=== PATIENT | male | born 1985 | race Asian ===

== ENCOUNTER 2016-10-11 06:02 | Day surgery (SDC) | payer MEDICARE, OTHER ==
[~2016-10-11] VITALS: Ht 162.6 cm; Wt 75.0 kg
[2016-10-11] VITALS (12 sets, daily range): BP systolic 117–151; BP diastolic 51–84; PULSE 60–82; RESP 13–29; Ht 162.6 cm; Wt 75.0 kg
[~2016-10-11 06:02] MED LIST: CALC667C PO; HYDR-3498 PO; HYDR-3720 PO; METO-448 PO; SEVE800T10 PO
[2016-10-11] MEDS ORDERED: METO-448 PO (06:56)
[2016-10-11] MEDS ORDERED: CALC667C PO (06:56)
[2016-10-11] MEDS ORDERED: SEVE800T10 PO (06:56)
[2016-10-11 06:57] LABS: BASOPHILS % 0.5 % (0.0-2.0); EOSINOPHILS # 0.6 10^3/ul (0.0-0.5); EOSINOPHILS % 6.6 % (0.0-7.0); HEMATOCRIT 33.1 % (42.0-52.0); HEMOGLOBIN 11.2 g/dl (14.0-18.0); LYMPHOCYTES % 35.5 % (15.0-51.0); MEAN CORPUSCULAR HEMOGLOBIN 31.5 pg (29.0-33.0); MEAN CORPUSCULAR HGB CONC 33.8 g/dl (32.0-37.0); MEAN PLATELET VOLUME 7.8 fl (7.4-10.4); MONOCYTE # 1.1 10^3/ul (0.3-0.9); MONOCYTES % 13.1 % (0.0-11.0); NEUTROPHIL # 3.8 10^3/ul (1.6-7.5); NEUTROPHILS % 44.3 % (39.0-77.0); PLATELET COUNT 162 10^3/UL (140-440); RED BLOOD COUNT 3.56 10^6/ul (4.70-6.10); RED CELL DISTRIBUTION WIDTH 14.8 % (11.5-14.5); UNCORRECTED WBC 8.5 10^3/ul (4.8-10.8); WHITE BLOOD COUNT 8.5 10^3/ul (4.8-10.8)
[2016-10-11 07:02] LABS: INR 0.89; PT RATIO 0.9
[2016-10-11 07:09] LABS: CONDITION 1; LH ANALYZER COMMENTS 1
[2016-10-11] MEDS ORDERED: IODIXANOL LOCM 50 ML BTL ONE ×2 (08:01→08:45)
[2016-10-11] MEDS ORDERED: SOD CHLORIDE 0.9% 500 ML ONE (08:01)
[2016-10-11] MEDS ORDERED: IODIXANOL LOCM 100 ML BTL ONE (08:01)
[2016-10-11] MEDS ORDERED: FENTAnyl 50 MCG/ML VIAL ONE (08:01)
[2016-10-11 08:10] LABS: PARTIAL THROMBOPLASTIN TIME 36.1 Sec (25.0-35.0)
[2016-10-11] MEDS ORDERED: MIDAZOLAM 1 MG/ML 2 ML INJ ONE (08:15)
[2016-10-11] MEDS ORDERED: HEPARIN 1000 UNITS/ML 10 ML INJ ONE (08:18)
[2016-10-11] MEDS ORDERED: DIPHENHYDRAMINE 50 MG INJ ONE (08:59)
--- NOTE | 2016-10-11 09:08 | PDOCDIS ---
Discharge Instructions DIAGNOSIS Discharge Diagnosis: ESRD CONDITION Patient Condition: Good HOME CARE INSTRUCTIONS: Special Diet: RENAL DIET ACTIVITY: Activity Restrictions: Slowly Increase Activity Avoid heavy lifting Do not Drive Do not operate Machinery Do not operate Power Tool Avoid Heavy Housework Keep Limb Elevated Activity Restrictions Comment: MAY SHOWER IN 24HRS FOLLOW UP/APPOINTMENTS Appointments FOLLOWUP WITH [facility]IC[facility] AT [facility] IN 1 WEEKS MAY REMOVE DRESSING IN 24HRS ADAM VARGAS MD Oct 11, 2016 09:08
--- NOTE | 2016-10-11 12:40 | OPR ---
DATE OF OPERATION: 10/11/2016 SURGEON: Juma Zapien MD FLUOROSCOPY SAXENA: Terry Chaves MD PREOPERATIVE DIAGNOSIS: End-stage renal disease and malfunctioning right upper extremity arterioven ous fistula. POSTOPERATIVE DIAGNOSIS: End-stage renal disease and malfunctioning right upper extremity arteriove nous fistula. ANESTHESIA: Local with sedation. ESTIMATED BLOOD LOSS: Minimal. COMPLICATIONS: None. MEDICATIONS: Heparin 5000 units given intravenously. Contrast as recorded. ACCESS: A 7-Ukrainian sheath, right upper extremity. CLOSURE: Manual compression and 3-0 nylon suture. INDICATIONS: This is a 31-year-old gentleman who presented with non-maturing right upper extremity AV fistula. The patient underwent an ultrasound that identified having high velocities in areas of neointimal hyperplasia. The patient has been informed of the alternatives, risks, and benefits of t he angiogram, balloon angioplasty, and possible stenting. The risks including, but not limited to, bleeding, thrombosis, embolization of myocardial infarction, , stroke, device malfunction, infe ction, nephrotoxicity, and he has agreed to proceed. PROCEDURE: 1. Ultrasound-guided access of the right upper extremity fistula. 2. Right upper extremity venogram. 3. Right subclavian vein and superior vena cava venoplasty with a 9 x 40 mm balloon. 4. Right basilic vein balloon angioplasty with 5 x 40 mm balloon and then repeated with 6 x 80 mm b alloon. 5. Completion venogram was performed. FINDINGS: 1. Patent brachial artery, patent radial artery. 2. Patent ulnar artery. 3. Patent interosseous artery. 4. Patent fistula at the anastomosis. 5. Patent fistula with severe areas of stenosis in the proximal aspect of the fistula extending to the mid upper arm. 6. Moderate to severe stenosis of the right subclavian vein at the internal jugular vein junction a nd proximal superior vena cava. Post intervention patent fistula at the anastomosis and to the exte nt of the area where there was significant stenosis. There was good outflow into the central system . DESCRIPTION OF PROCEDURE: The patient was brought into the angio suite and positioned in the supine position on the fluoroscopic table. Sedation was administered without any complications. Right up per extremity was prepped, shaved, and draped in the usual standard sterile fashion. Time out and t he appropriate sites were marked and confirmed. Local anesthesia was infiltrated into the region of the right upper extremity fistula. The fistula was then cannulated with a micro access needle under ultrasound guidance, and a guidewir e was advanced into the proximal aspect of the fistula under fluoroscopic guidance. The needle was then removed and the [place] catheter was placed. Multi-station fistulogram and venogram were perform ed of the right upper extremity fistula and right upper extremity veins and central veins. Findings are noted above. At this point, it was determined to intervene with venoplasty of the proximal asp ect of the basilic vein and the central vein where the areas of stenosis were identified. At this p oint, using ultrasound guidance, access of the arterial aspect of the fistula was obtained. This wa s performed under ultrasound and fluoroscopic guidance. At this point, a 7-Ukrainian sheath was placed , and using a ThisLife guidewire and Biosceptreenstein catheter, the Bentson wire was placed in the inferior vena cava. At this point, venoplasty of the basilic vein and a loop forearm AV fistula was perform ed, first using a 6 x 80 mm balloon. There were areas of significant stenosis and some residual freddy nosis which was then attended to with repeating the venoplasty with a 5 x 40 mm balloon, and that ar ea was treated. At this point, we performed a venogram which identified the patient still has centr al stenosis. We ended up using a 9 x 40 balloon in order to perform a venoplasty of the right subcl kwan vein/internal jugular vein junction and the proximal superior vena cava. Completion venogram identified that there was good outflow into the right atrium and the areas of significant stenosis i n the proximal aspect of the loop, the AV fistula was also improved. At this point, all the cathete rs and sheaths and wires were removed, and re-using a 3-0 nylon suture to close the puncture sites w as performed. The patient was taken to the recovery room in fair condition. Dictated By: JUMA LY/MADELINE Conf#: [id number] DID#: [id number]
== END 2016-10-11 14:22 | disposition home or self-care (01) ==
LOC: SDS 06:02 → CCL 06:05 → SDS 14:22
PROVIDERS: ATTEND Student in an Organized Health Care Education/Training Program
DX: T82.590A Other mechanical complication of surgically created arteriovenous fistula, initial encounter (principal); Y71.1 Therapeutic (nonsurgical) and rehabilitative cardiovascular devices associated with adverse incidents; N18.6 End stage renal disease
CPT/HCPCS: 36901; 36902; 36907; 85025; 85610; 85730; C1725; C1769; C1887; C1894; J1200; J1644; J2250; J3010; J7040; Q9967

== ENCOUNTER → 2016-11-03 | Outpatient (CLI) | END | disposition home or self-care (01) | DX: N19 Unspecified kidney failure (principal) ==

== ENCOUNTER → 2016-11-10 | Outpatient (CLI) | payer MEDICARE, OTHER ==
--- NOTE | 2016-11-10 08:40 | RADRPT ---
PROCEDURE: XR Chest. CLINICAL INDICATION: Screening for tuberculosis TECHNIQUE: Chest PA. COMPARISON: 06/07/2016 FINDINGS: Right internal jugular tunnel dialysis catheter. The mediastinal structures are unremarkable. The heart is normal in size and configuration. The pu lmonary vascularity is normal. The lung warren are unremarkable. No consolidation is identified. The pleural spaces are unremarkable. The axial skeleton is unremarkable. There is no radiographic evidence of tuberculosis. IMPRESSION: No active intrathoracic disease. RPTAT: HGDB .Mariano Elizabeth MD, MD Date Time Electronically viewed and signed by .Mariano Elizabeth MD, on 11/10/2016 08:39 .B/
== END | disposition home or self-care (01) ==
LOC: RAD 08:13
PROVIDERS: ATTEND Internal Medicine Nephrology
DX: Z20.1 Contact with and (suspected) exposure to tuberculosis (principal)
CPT/HCPCS: 71010

== ENCOUNTER 2017-02-21 23:15 | Observation (INO) | payer MEDICARE, OTHER ==
[~2017-02-21] VITALS: Ht 167.6 cm; Wt 79.3 kg
[2017-02-22] VITALS (11 sets, daily range): BP systolic 129–174; BP diastolic 65–100; PULSE 67–89; RESP 18–19; TEMP 98.5; Ht 167.6 cm; Wt 79.3 kg
[2017-02-22 03:52] LABS: ADD SCAN DIFF NO
[2017-02-22 03:54] LABS: BASOPHILS % 0.4 % (0.0-2.0); EOSINOPHILS # 0.4 10^3/ul (0.0-0.5); EOSINOPHILS % 4.2 % (0.0-7.0); HEMATOCRIT 33.8 % (42.0-52.0); HEMOGLOBIN 11.2 g/dl (14.0-18.0); LYMPHOCYTES # 3.5 10^3/ul (0.8-2.9); LYMPHOCYTES % 33.1 % (15.0-51.0); MEAN CORPUSCULAR HEMOGLOBIN 30.1 pg (29.0-33.0); MEAN CORPUSCULAR HGB CONC 33.1 g/dl (32.0-37.0); MEAN CORPUSCULAR VOLUME 90.9 fl (82.0-101.0); MEAN PLATELET VOLUME 9.6 fl (7.4-10.4); MONOCYTE # 1.1 10^3/ul (0.3-0.9); MONOCYTES % 10.7 % (0.0-11.0); NEUTROPHIL # 5.4 10^3/ul (1.6-7.5); NEUTROPHILS % 51.3 % (39.0-77.0); PLATELET COUNT 220 10^3/UL (140-415); RED BLOOD COUNT 3.72 10^6/ul (4.70-6.10); RED CELL DISTRIBUTION WIDTH 13.7 % (11.5-14.5); WHITE BLOOD COUNT 10.5 10^3/ul (4.8-10.8)
[2017-02-22 04:21] LABS: ALANINE AMINOTRANSFERASE 50 IU/L (13-69); ALBUMIN 5.1 g/dl (3.3-4.9); ALBUMIN/GLOBULIN RATIO 1.64; ALKALINE PHOSPHATASE 55 IU/L (42-121); ANION GAP 23 (8-16); ASPARTATE AMINO TRANSFERASE 20 IU/L (15-46); BILIRUBIN,INDIRECT 0.1 mg/dl (0-1.1); BILIRUBIN,TOTAL 0.1 mg/dl (0.2-1.3); BLOOD UREA NITROGEN 66 mg/dl (7-20); CALCIUM 9.5 mg/dl (8.4-10.2); CARBON DIOXIDE 23 mmol/L (21-31); CHLORIDE 101 mmol/L (97-110); GLUCOSE 82 mg/dl (70-220); SODIUM 141 mmol/L (135-144); TOTAL PROTEIN 8.2 g/dl (6.1-8.1)
--- NOTE | 2017-02-22 04:45 | RADRPT ---
PROCEDURE: CHEST - 1 VIEW CLINICAL INDICATION: 32-year-old male with shortness of breath and sepsis. TECHNIQUE: A single frontal AP portable view of the chest was performed. The images were reviewed on a PACS workstation. COMPARISON: Chest x-ray November 10, 2016. FINDINGS: There is a right-sided internal jugular tunneled hemodialysis catheter the tip in the distal superio r vena cava. The cardiomediastinal silhouette is within normal limits. There is mild left lower florinda ng zone subsegmental atelectasis and/or scarring. There is no evidence for an infiltrate. There is no evidence for congestive heart failure. There is no evidence for pneumothorax. The osseous struct ures are intact. IMPRESSION: 1. Right internal jugular tunneled hemodialysis catheter the tip in the distal superior vena cava. 2. Mild left lower lung zone subsegmental atelectasis and/or scarring. .Paxton Colindres MD, MD Date Time Electronically viewed and signed by .Paxton Colindres MD, on 02/22/2017 04:45 .M/
[2017-02-22 04:59] LABS: CREATININE 17.79 mg/dl (0.61-1.24); TROPONIN-I < 0.012 ng/ml (0.00-0.12)
[2017-02-22] MEDS ORDERED: CALC667C PO (05:17)
[2017-02-22 05:20] LABS: INR 0.91; PARTIAL THROMBOPLASTIN TIME 37.4 Sec (25.0-35.0); PROTIME 12.3 Sec (12.2-14.2)
--- NOTE | 2017-02-22 05:25 | ERA ---
ER Documentation Chief Complaint Date/Time DATE: 02/22/17 TIME: 05:24 Chief Complaint hypertension , chills, back pain x 1 day, dialysis pat. dialysis days MWF HPI There is a 33 mL hypertension chills and back pain for 1 day. Patient dialysis. She and her mother was afraidthat he started having fevers as well yesterday. No nausea no vomiting. No cough. No other current issues. ROS All systems reviewed and are negative except as per history of present illness. Medications Home Meds Reported Medications Calcium Acetate* (Calcium Acetate*) 667 Mg Capsule, 667 MG PO WITH MEALS, #30 CAP 02/22/17 Sevelamer Hcl* (Renagel*) 800 Mg Tablet, 800 MG PO WITH MEALS Y for TID, TAB 10/11/16 Metoprolol Tartrate* (Lopressor*) 25 Mg Tab, 12.5 MG PO BID, #60 TAB 10/11/16 Discontinued Reported Medications Calcium Acetate* (Calcium Acetate*) 667 Mg Capsule, 1334 MG PO WITH MEALS Y for TID, #60 CAP 10/11/16 Calcium Acetate* (Calcium Acetate*) 667 Mg Capsule, 1334 MG PO WITH MEALS, #60 CAP 10/11/16 Discontinued Scripts Hydrocodone Bit-Acetaminophen* ([place]*) 5-325 Mg Tab, 1 TAB PO Q4H Y for PAIN, # 30 TAB Prov:WILLIAM MATHUR 02/05/16 Hydrocodone Bit-Acetaminophen* ([place]*) 7.5-325 Tablet, 1 TAB PO Q4H Y for PAIN , #20 TAB Prov:VEENA AWAD DO 01/20/16 Sevelamer Hcl* (Renagel*) 800 Mg Tab, 1600 MG PO WITH MEALS for 30 Days, TAB Prov:CELESTINA GRACE MD 01/15/16 Metoprolol Tartrate* (Lopressor*) 25 Mg Tab, 25 MG PO BID for 30 Days, TAB Prov:JOSE GARNER 10/26/15 Calcium Acetate* (Calcium Acetate*) 667 Mg Cap, 1334 MG PO WITH MEALS for 30 Days, CAP Prov:JOSE GARNER 10/26/15 Allergies Allergies: Coded Allergies: No Known Allergy (Unverified , 02/22/17) PMhx/Soc History of Surgery: Yes (p[ermacath, AV Fistula) Anesthesia Reaction: No Hx Neurological Disorder: No Hx Respiratory Disorders: No Hx Cardiac Disorders: Yes (HTN) Hx Psychiatric Problems: No Hx Miscellaneous Medical Probl: No Hx Alcohol Use: No Hx Substance Use: No Hx Tobacco Use: No Smoking Status: Never smoker Physical Exam Vitals Vital Signs Date Time Temp Pulse Resp B/P Pulse Ox O2 Delivery O2 Flow Rate FiO2 02/22/17 03:16 97.7 80 16 182/95 99 Room Air 02/21/17 23:21 98.5 92 20 207/110 97 Physical Exam Const: [] Head: Atraumatic Eyes: Normal Conjunctiva ENT: Normal External Ears, Nose and Mouth. Neck: Full range of motion..~ No meningismus. Resp: Clear to auscultation bilaterally Cardio: Regular rate and rhythm, no murmurs Abd: Soft, non tender, non distended. Normal bowel sounds Skin: No petechiae or rashes Back: No midline or flank tenderness Ext: No cyanosis, or edema Neur: Awake and alert Psych: Normal Mood and Affect Result Diagram: 02/22/17 0328 02/22/17 0328 Results 24 hrs Laboratory Tests Test 02/22/17 03:28 White Blood Count 10.510^3/ul Red Blood Count 3.7210^6/ul Hemoglobin 11.2g/dl Hematocrit 33.8% Mean Corpuscular Volume 90.9fl Mean Corpuscular Hemoglobin 30.1pg Mean Corpuscular Hemoglobin Concent 33.1g/dl Red Cell Distribution Width 13.7% Platelet Count 54765^3/UL Mean Platelet Volume 9.6fl Neutrophils % 51.3% Lymphocytes % 33.1% Monocytes % 10.7% Eosinophils % 4.2% Basophils % 0.4% Nucleated Red Blood Cells % 0.0/100WBC Neutrophils # 5.410^3/ul Lymphocytes # 3.510^3/ul Monocytes # 1.110^3/ul Eosinophils # 0.410^3/ul Basophils # 0.010^3/ul Nucleated Red Blood Cells # 0.010^3/ul Prothrombin Time 12.3Sec Prothrombin Time Ratio 1.0 INR International Normalized Ratio 0.91 Activated Partial Thromboplast Time 37.4Sec Sodium Level 141mmol/L Potassium Level 6.0mmol/L Chloride Level 101mmol/L Carbon Dioxide Level 23mmol/L Anion Gap 23 Blood Urea Nitrogen 66mg/dl Creatinine 17.79mg/dl Glucose Level 82mg/dl Lactic Acid Level 1.0mmol/L Calcium Level 9.5mg/dl Total Bilirubin 0.1mg/dl Direct Bilirubin 0.00mg/dl Indirect Bilirubin 0.1mg/dl Aspartate Amino Transf (AST/SGOT) 20IU/L Alanine Aminotransferase (ALT/SGPT) 50IU/L Alkaline Phosphatase 55IU/L Troponin I < 0.012ng/ml Total Protein 8.2g/dl Albumin 5.1g/dl Globulin 3.10g/dl Albumin/Globulin Ratio 1.64 Procedures/MDM EKG: Rate/Rhythm: Normal Sinus Rhythm QRS, ST, T-waves: No changes consistent w/ acute ischemia Impression: No evidence of ischemia or arrhythmia Chest X-ray 1V Interpreted by me: Soft Tissue: No acute abnormalities Bones: No acute abnormalities Mediastinum/Cardiac Silhouette/Lungs: No acute abnormalities Blood and urine cultures pending Medical decision-makin-year-old male with this point will need to be admitted to rule out line sepsis. Started on broad-spectrum antibiotics. Patient will be admitted. Departure Diagnosis: Primary Impression: Line sepsis Qualified Code: T82.7XXA - Line sepsis, initial encounter Condition: Serious RONNIE DHILLON Feb 22, 2017 05:25
[2017-02-22 06:34] LABS: ADD UMIC YES; UR BILIRUBIN (Dip) NEGATIVE (NEGATIVE); UR BLOOD (Dip) 1+ (NEGATIVE); UR CLARITY CLEAR (CLEAR); UR COLOR LT. YELLOW (YELLOW); UR KETONES (Dip) NEGATIVE (NEGATIVE); UR LEUKOCYTE ESTERASE (Dip) NEGATIVE (NEGATIVE); UR NITRITE (Dip) NEGATIVE (NEGATIVE); UR TOTAL PROTEIN (Dip) 4+ (NEGATIVE); UR UROBILINOGEN (Dip) 0.2 E.U./dL (0.1-1.0)
[2017-02-22 07:03] LABS: URINE RBCS 0-2 /HPF (0)
[2017-02-22] MEDS ORDERED: ACETAMINOPHEN 325 MG TAB PO PRN (09:30)
[2017-02-22] MEDS ORDERED: hydrALAzine 20 MG INJ IV PRN (09:30)
[2017-02-22] MEDS ORDERED: NACL 0.9% 3 ML SYG IV SCH (09:30)
[2017-02-22] MEDS ORDERED: morphine 4 MG/ML VIAL IV PRN (09:30)
[2017-02-22] MEDS ORDERED: SEVELAMER 800 MG TAB PO PRN (09:30)
[2017-02-22] MEDS ORDERED: ONDANSETRON 4 MG INJ IV PRN (09:30)
[2017-02-22] MEDS: METOPROLOL 25 MG TAB PO SCH ×2 (09:41→20:42)
--- NOTE | 2017-02-22 10:50 | HP ---
DATE OF ADMISSION: 02/22/2017 TIME OF EVALUATION: 9:00 a.m. REASON FOR ADMISSION: Back pain, chills, elevated blood pressure. CONSULTATIONS: Dr. Geovani Beltran, Nephrology. HISTORY OF PRESENT ILLNESS: This is a 32-year-old [place] male with a past medical history of end-stage renal disease on hemodialysis, and essential hypertension, who came to the emergency room with chief complaint of back pain and chills that started on 02/21/2017. The patient verbalized that he had a complete dialysis on 02/20/2017 without any problems. The patient started having low back pain starting 02/21/2017 with difficulty in ambulation and associated bilateral lower extremity spasms. The patient was also complaining of shaking chills. The patient denied any fevers. The patient denied any cough or dyspnea. He denied any recent sick contacts. The patient verbalized that he had a similar pain in his back approximately 1 year ago when he was diagnosed with renal failure that required initiation of hemodialysis. The patient denied any abdominal pain or diarrhea. In the emergency room, the patient was noticed to have hyperkalemia with a potassium of 6.0. The patient had no leukocytosis. The patient was afebrile. The patient has an initial blood pressure of 207/110 in the emergency room. The patient was not treated with any medications in the emergency room. Although it was mentioned in the ER physician's notes that the patient was started on empiric antibiotics for any possible underlying sepsis, it is unclear whether the patient was given any antibiotics in the emergency room as there are no antibiotics seen on EMR. The patient had no lactic acidosis. PAST MEDICAL HISTORY: History of hypertension, end-stage renal disease on hemodialysis. PAST SURGICAL HISTORY: Right chest wall Perm-A-Cath placement, AV fistula placement. HOME MEDICATIONS: 1. Lopressor 12.5 mg p.o. b.i.d. 2. Calcium acetate 667 mg p.o. with meals. 3. Renagel 800 mg p.o. with meals t.i.d. ALLERGIES: NO KNOWN DRUG ALLERGIES. SOCIAL HISTORY: The patient lives at home with his family. Denies any use of tobacco, alcohol or illicit drugs. REVIEW OF SYSTEMS: A 12-point review of systems was negative other than what is mentioned in history of present illness. PHYSICAL EXAMINATION: VITAL SIGNS: Temperature 97.7, pulse is 67, respiratory rate 18, blood pressure 174/100, oxygen saturation 99% on room air. GENERAL: This is a slightly overweight [place] male lying in bed in no apparent distress. HEENT: Head normocephalic and atraumatic. Eyes: Anicteric sclerae. Conjunctivae clear. ENT: Nasal septum is midline. Oral mucosa is dry. NECK: Supple. No JVD noticed. RESPIRATORY: Bilaterally clear to auscultation. No adventitious breath sounds heard. No use of accessory muscles of respiration. CARDIAC: Regular rate and rhythm. S1, S2 heard. ABDOMEN: Soft, nontender and nondistended. Bowel sounds positive in all 4 quadrants. GENITOURINARY: Deferred. EXTREMITIES: No cyanosis, no clubbing, no edema. Peripheral pulses palpable. BACK: Tender in the lumbar area bilaterally. NEUROLOGIC: Equal strength in bilateral lower extremities. LABORATORY AND DIAGNOSTIC DATA: WBC 10.5, hemoglobin 11.2, hematocrit 33.8, platelet count 220. Sodium 141, potassium 6.0, chloride 101, carbon dioxide 23 , anion gap 22, BUN 66 , glucose 82, calcium 9.5, AST 20, ALT 50, alkaline phosphatase 55. Troponin less than 0.012. PT 12.3, INR 0.91, PTT 37.4. Urinalysis: Urine nitrate negative, urine leukocyte esterase negative, urine total protein 4+. Chest x-ray: Right internal jugular tunneled hemodialysis catheter with tip in the distal superior vena cava. Mild left lower lung zone subsegmental atelectasis and/or scarring. IMPRESSION: A 32-year-old male with end-stage renal disease on hemodialysis and essential hypertension who came to the emergency room with chief complaint of severe lower back pain with associated difficulty in ambulation as well as chills who will be admitted here for further treatment and evaluation. ASSESSMENT AND PLAN: 1. Low back pain: Etiology unclear. The patient will be provided with adequate pain control. An x-ray of the lumbar spine will be obtained to evaluate for any underlying pathology. The patient has no evidence of any bilateral lower extremity weakness. The patient denied any urinary or bowel incontinence. It is highly suspected that the patient's pain could be musculoskeletal in origin. 2. End-stage renal disease on hemodialysis: The patient currently has hyperkalemia. 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 The patient is scheduled hemodialysis on Monday, Monday and Monday. 3. Accelerated hypertension: The patient was started on antihypertensives including p.r.n. antihypertensives for high blood pressure readings. 4. Hyperkalemia: Most probably secondary to underlying end-stage renal disease. The patient is scheduled to get hemodialysis today. 5. Shaking chills: Etiology unclear. The patient has no evidence of any systemic inflammatory response syndrome at this time. Nevertheless girard- cultures will be obtained. The patient will not be started on any antibiotics unless the patient has evidence of infection. Plan. The patient will be admitted to inpatient medical/surgical floor. The patient will be started on a renal diet. The patient will be started on DVT prophylaxis and gastrointestinal prophylaxis. The patient will remain a FULL CODE. Activities will be as tolerated. The rest of the patient's management will be based on clinical course, the results of diagnostic studies, and input from consultants. . Based on the patient's clinical presentation, he most probably requires at least 2 midnights' stay for further management and evaluation of his clinical presentation. The case and management of this patient was fully discussed with Dr. Coates. KINGA COATES MD, AM/MADELINE Conf#: [id number] DID#: [id number] SUSAN
[2017-02-22] MEDS ORDERED: SEVELAMER 800 MG TAB PO SCH (12:15)
[2017-02-22] MEDS: CALCIUM ACETATE 667 MG CAP PO SCH ×2 (12:43→17:38)
--- NOTE | 2017-02-22 13:19 | CONS ---
DATE OF ADMISSION: 02/22/2017 DATE OF CONSULTATION: 02/22/2017 TYPE OF CONSULTATION: Nephrology. REASON FOR CONSULTATION: Hyperkalemia, end-stage renal disease. HISTORY OF PRESENT ILLNESS: This is a 32-year-old male well known to me with a past medical history of end-stage renal disease on hemodialysis Monday, Monday, Monday with access of a right PermCat h. The patient also has history of hypertension, mineral bone disorder, anemia. The patient came i [facility] after having back pain, chills and elevated blood pressure. The tabitha logan stated the pain started in the lower back on 02/21/2017, difficulty ambulating, spasming. The patient had noted rigors, chills. Denied any fevers, no cough, no shortness of breath. The patien t came to the emergency room. Upon arrival, patient was noted to be hyperkalemic with a potassium 6 .0, no leukocytosis. The patient was hypertensive with systolic pressures of 207. In the emergency room, the patient was given antihypertensive medications, IV hydralazine. The patient had blood cu ltures drawn. Lactic acid levels were normal limits. The patient was admitted to medical/surgical for further evaluation. Upon my evaluation of the patient at this time, the patient is currently complaining about lower naty k pain. Denies any recent episodes of dysuria, hematuria, no rashes. PAST MEDICAL HISTORY: As stated above, history of end-stage renal disease, history of hypertension, anemia, mineral bone disorder. PAST SURGICAL HISTORY: Status post PermCath placement, AV fistula placement. FAMILY HISTORY: Noncontributory. MEDICATIONS: The patient's medications have been reviewed. ALLERGIES: NO KNOWN DRUG ALLERGIES. SOCIAL HISTORY: Does not drink, smoke or do drugs. REVIEW OF SYSTEMS: A 14-point review of systems was conducted. Pertinent positives in the HPI, oth erwise negative. PHYSICAL EXAMINATION: VITAL SIGNS: Blood pressure is 180/110, respirations 12, pulse 62, temperature 98.6. HEENT: Head is normocephalic. Pupils are reactive to light. NECK: Supple. HEART: Regular rate. LUNGS: Show diminished breath sounds at the bases. ABDOMEN: Soft, nontender to palpation. No rebound or guarding. EXTREMITIES: Negative for clubbing, cyanosis. No edema. DERMATOLOGIC: No rashes. MUSCULOSKELETAL: No joint effusions. NEUROLOGIC: No focal deficits. LABORATORY DATA: Shows a sodium 141, potassium 6.0, BUN 66, creatinine 17.79. White count 10.5, he moglobin 9.2, hematocrit 33.8, platelet count is 220. ASSESSMENT AND PLAN: This is a 32-year-old male who presents with: 1. End-stage renal disease. The patient is on dialysis Monday, Monday, Monday with access PermC ath. Plan is to have dialysis today for 3 hours, 2 K bath, calcium 2.5, ultrafiltrate as tolerated. 2. Hyperkalemia secondary to end-stage renal disease. The patient will be dialyzed on a low-potass ium bath. Continue low-potassium diet. 3. Mineral bone disorder. Monitor calcium and phosphorus levels. We will continue phosphate binder s. 4. Anemia. Monitor hemoglobin and hematocrit levels. We will give Epogen as needed. 5. Hypertension in part due to increased intravascular volume. Continue ultrafiltration dialysis. Continue current blood pressure regimen. 6. Chills, lower back pain. Etiology unclear. Possible muscle spasm. However, would rule out inf ection. We will follow blood cultures. Obtain urine culture. Follow up cultures from dialysis cat heter. Continue to monitor closely. Consider antibiotic therapy. We will also get an x-ray of the lower back for evaluation. Continue antispasmodics medications. Consider physical therapy. Thank you, Ramsey Hollis NP, for this interesting consult. It will be a pleasure to follow the pat ieconchita with you throughout the hospital course. Dictated By: TAISHA VIERA/MADELINE Conf#: [id number] DID#: [id number]
[2017-02-22] MEDS: SEVELAMER 800 MG TAB PO SCH (17:39)
--- NOTE | 2017-02-22 18:23 | RADRPT ---
PROCEDURE: XR Lumbar Spine. CLINICAL INDICATION: Back pain. TECHNIQUE: Three views. AP, lateral and cone-down lateral view of the lumbar spine were obtained. COMPARISON: No prior studies are available for comparison. FINDINGS: There is mild scoliosis convex left. Alignment is otherwise normal. There is no fracture. There is no lytic or blastic lesion. There is disk space narrowing at L4-5. The disk height is otherwise normal. The paravertebral soft tissues are unremarkable. IMPRESSION: 1. Mild scoliosis convex left. 2. Disk space narrowing at L4-5. 3. Otherwise normal images of the lumbar spine. RPTAT: QQ .Davey Tripathi MD, MD Date Time Electronically viewed and signed by .Davey Tripathi MD, on 02/22/2017 18:22 .R/
[2017-02-22 19:21] LABS: ADD UMIC YES; UR BILIRUBIN (Dip) NEGATIVE (NEGATIVE); UR BLOOD (Dip) TRACE (NEGATIVE); UR CLARITY CLEAR (CLEAR); UR COLOR LT. YELLOW (YELLOW); UR KETONES (Dip) NEGATIVE (NEGATIVE); UR LEUKOCYTE ESTERASE (Dip) NEGATIVE (NEGATIVE); UR NITRITE (Dip) NEGATIVE (NEGATIVE); UR TOTAL PROTEIN (Dip) 2+ (NEGATIVE); UR UROBILINOGEN (Dip) 0.2 E.U./dL (0.1-1.0)
[2017-02-22 19:35] LABS: URINE RBCS 0-2 /HPF (0)
[2017-02-22] MEDS ORDERED: FAMOTIDINE 20 MG TAB PO SCH (21:00)
[2017-02-23] VITALS (10 sets, daily range): BP systolic 124–156; BP diastolic 71–88; PULSE 72–84; RESP 16–18
[2017-02-23 05:42] LABS: ADD SCAN DIFF NO
[2017-02-23 05:48] LABS: BASOPHILS % 0.2 % (0.0-2.0); EOSINOPHILS # 0.4 10^3/ul (0.0-0.5); EOSINOPHILS % 4.2 % (0.0-7.0); HEMATOCRIT 34.7 % (42.0-52.0); HEMOGLOBIN 11.4 g/dl (14.0-18.0); LYMPHOCYTES # 2.3 10^3/ul (0.8-2.9); LYMPHOCYTES % 25.7 % (15.0-51.0); MEAN CORPUSCULAR HEMOGLOBIN 30.1 pg (29.0-33.0); MEAN CORPUSCULAR HGB CONC 32.9 g/dl (32.0-37.0); MEAN CORPUSCULAR VOLUME 91.6 fl (82.0-101.0); MEAN PLATELET VOLUME 9.9 fl (7.4-10.4); MONOCYTE # 0.9 10^3/ul (0.3-0.9); MONOCYTES % 9.5 % (0.0-11.0); NEUTROPHIL # 5.4 10^3/ul (1.6-7.5); NEUTROPHILS % 60.2 % (39.0-77.0); PLATELET COUNT 159 10^3/UL (140-415); RED BLOOD COUNT 3.79 10^6/ul (4.70-6.10); RED CELL DISTRIBUTION WIDTH 13.6 % (11.5-14.5)
[2017-02-23 06:12] LABS: ALBUMIN 4.9 g/dl (3.3-4.9); ALBUMIN/GLOBULIN RATIO 1.58; CALCIUM 9.3 mg/dl (8.4-10.2); POTASSIUM 5.7 mmol/L (3.5-5.1)
[2017-02-23 06:21] LABS: CREATININE 14.93 mg/dl (0.61-1.24)
[2017-02-23 06:25] LABS: CHOL/HDL RATIO 3.8 RATIO; MAGNESIUM 2.8 mg/dl (1.7-2.5); PHOSPHORUS 9.5 mg/dl (2.5-4.9)
[2017-02-23] MEDS: CALCIUM ACETATE 667 MG CAP PO SCH ×3 (08:31→17:39)
[2017-02-23] MEDS: SEVELAMER 800 MG TAB PO SCH ×3 (08:31→17:39)
[2017-02-23] MEDS: METOPROLOL 25 MG TAB PO SCH ×2 (08:32→20:46)
--- NOTE | 2017-02-23 10:05 | PN ---
DATE: 02/23/2017 SUBJECTIVE: The patient continues to have back pain ongoing. X-ray was obtained, showed evidence o f disk narrowing and scoliosis. No other events noted. The patient is scheduled for dialysis today . OBJECTIVE: VITAL SIGNS: Blood pressure is 140/81, respirations 16, pulse 62, temperature 98.1. HEENT: Head is normocephalic. NECK: Supple. HEART: Regular rate. LUNGS: Show diminished breath sounds at the bases. ABDOMEN: Soft, nontender to palpation. No rebound or guarding. EXTREMITIES: Negative for clubbing, cyanosis. No edema. DERMATOLOGIC: No rashes. MUSCULOSKELETAL: The patient has tenderness to palpation along the L4 to L5 region with radiation o n palpation. NEUROLOGIC: No change in exam. MEDICATIONS: Reviewed. LABORATORY DATA: Shows white count 9.0, hemoglobin 9.4, hematocrit 34.7, platelet count is . Sodium 142, potassium 5.7, BUN 49, creatinine 14.95. Magnesium 2.8, phosphorus 9.5. ASSESSMENT AND PLAN: 1. End-stage renal disease. Plan for dialysis today for 3 hours, 2K bath, calcium 2.5 for solute c learance. 2. Hyperkalemia secondary to end-stage renal disease. Continue low-potassium diet. Continue dialy sis with 2 potassium bath. 3. Mineral bone disorder. The patient remains hyperphosphatemic. Continue phosphate binders. Con tinue a low-phosphate diet. Continue dialysis. 4. Anemia. Continue to monitor hemoglobin and hematocrit levels. No need for Epogen. 5. Hypertension. Continue current blood pressure regimen. 6. Lower back pain. The patient's x-ray shows no acute fracture. We will get an MRI to rule out d isk herniation. 7. Chills. Low suspicion for infection. The patient's white count is normal. Cultures are negati ve to date. Continue to monitor off antibiotics. Please note, I spent up to 25 minutes in face to face time discussing code status. The patient is a FULL CODE. Dictated By: TAISHA VIERA/MADELINE Conf#: [id number] DID#: [id number]
[2017-02-23] MEDS: HEPARIN 5,000 UNIT/0.5 ML VIAL SC SCH ×2 (11:01→21:15)
--- NOTE | 2017-02-23 15:35 | RADRPT ---
PROCEDURE: MRI lumbar spine without contrast. CLINICAL INDICATION: Low back pain TECHNIQUE: Multiplanar MRI of the lumbar spine without contrast was performed on a 3.0 T scanner in cluding the following sequences: T1-weighted, T2-weighted dual echo. COMPARISON: Lumbar spine radiographs 02/22/2017 FINDINGS: For the purposes of dictation, lowermost rib-bearing vertebra will be labeled T12 and L5 is transiti onal, partially sacralized and appears nonmobile on the left with a subjacent intervertebral disk. There is mild levoconvex lumbar scoliosis with preservation of the lordosis of the lumbar spine. Al ignment is otherwise intact. The vertebral bodies are maintained in height. Marrow signal intensit y is unremarkable. There is mild-moderate narrowing of the L5-S1 disk which is transitional. Other thompson the intervertebral discs are maintained in height with relative decreased disk intranuclear T2- weighted signal intensity L3-4, L4-5. There is congenital / developmental narrowing of the lumbar sp inal canal. The tip of the conus medullaris is visible at the upper L1 level and appears unremarkabl e. T12-L1: No disc bulge or herniation is identified. There is no acquired central canal stenosis or f oraminal narrowing. L1-L2: No disc bulge or herniation is identified. There is no acquired central canal stenosis or f oraminal narrowing. L2-L3: No disc bulge or herniation is identified. There is no acquired central canal stenosis or f oraminal narrowing. L3-L4: There is mild posterior disk bulging and a 2 mm right paracentral disk protrusion. There is mild central canal stenosis. The protrusion narrows the lateral recess on the right contacting, at least contacting the traversing right L4 nerve root. There is no foraminal narrowing. L4-L5: There is posterior disk bulging with annular high intensity zone - fissure on the right, an d a broad 2 mm left paracentral - foraminal disk protrusion. There is facet arthropathy with ligame ntum flavum hypertrophy. There is mild central canal stenosis. The protrusion narrows the left lat eral recess and at least contacts the traversing left L5 nerve root. There is mild bilateral forami nal narrowing, greater on the left. L5-S1: This is a transitional level. No disk bulge or herniation is identified. There is no centr al canal stenosis or foraminal narrowing. IMPRESSION: 1. Transitional, partially sacralized L5. If surgery/intervention is considered, radiographic corre lation is advised. 2. At L3-4, mild central canal stenosis with 2 mm right paracentral disk protrusion narrowing the r ight lateral recess and contacting the traversing right L4 nerve root. 3. At L4-5, mild central canal stenosis with 2 mm left paracentral - foraminal disk protrusion narr owing the left lateral recess, contacting the traversing left L5 nerve root. Mild bilateral foramina l narrowing. 4. Mild lumbar spondylosis. 5. Mild levoconvex lumbar scoliosis. 6. 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 RPTAT: VV .Jhonatan White MD, Date Time Electronically viewed and signed by .Jhonatan White MD, on 02/23/2017 15:35 .O/
[2017-02-23] MEDS: HYDROCODONE/APAP (5/325) TAB PO PRN (20:45)
[2017-02-24] VITALS (8 sets, daily range): BP systolic 122–140; BP diastolic 69–94; PULSE 69–80; RESP 16
[2017-02-24 06:55] LABS: CREATININE 13.84 mg/dl (0.61-1.24); MAGNESIUM 2.6 mg/dl (1.7-2.5); PHOSPHORUS 10.6 mg/dl (2.5-4.9)
[2017-02-24] MEDS: SEVELAMER 800 MG TAB PO SCH ×2 (08:49→14:32)
[2017-02-24] MEDS: CALCIUM ACETATE 667 MG CAP PO SCH ×2 (08:49→14:31)
[2017-02-24] MEDS: HEPARIN 5,000 UNIT/0.5 ML VIAL SC SCH (09:00)
[2017-02-24] MEDS: METOPROLOL 25 MG TAB PO SCH (09:00)
[2017-02-24] MEDS: HYDROCODONE/APAP (5/325) TAB PO PRN (09:25)
--- NOTE | 2017-02-24 11:02 | DS ---
DATE OF ADMISSION: 02/22/2017 DATE OF DISCHARGE: 02/24/2017 HOSPITAL COURSE: This is a 32-year-old [place] Citizen male with a past medical history of end-stage renal disease, a history of hypertension, who came to [facility] with back pain and chi lls. The patient states he has been having ongoing back pain off and on for the last several days. The patient also developed chills. As a result, he was worried about the possibility of infection and came to emergency room and was subsequently admitted for evaluation. In terms of the patient's back pain, etiology is musculoskeletal. The patient had MRI of the back which showed mild central c anal stenosis and disk protrusion. The patient was treated with physical therapy, pain medications, and antispasmodics, with significant improvement in his back pain. The patient will follow up with an outpatient orthopedist for further evaluation and for consideration of a cortisone injection. T he patient also during the hospital course had hemodialysis for end-stage renal disease, which he to lerated well. The patient had blood cultures obtained which were negative; therefore showing that t here were no signs of infection. Currently the patient will be discharged home. He will follow up w ith his primary care physician, Dr. Beltran, in 1 weeks' time. The patient will also be followed up with an outpatient orthopedist for further evaluation of his spinal stenosis and disk herniation. At the time of discharge the patient is stable, in no acute distress. FINAL DIAGNOSES: 1. End-stage renal disease. 2. Hyperkalemia. 3. Mineral bone disorder. 4. Anemia. 5. Hypertension. 6. Lower back pain secondary to spinal stenosis and disk herniation. The patient will be followed up in the outpatient setting. FINAL MEDICATIONS: Patient will be discharged on: 1. Baclofen 5 mg p.o. b.i.d. 2. Motrin 200 mg p.o. daily p.r.n. pain. 3. The patient will continue his home regimen of metoprolol, calcium acetate and Sevelamer. At the time of discharge the patient is stable, in in no acute distress. Please note, I spent over 40 minutes of time preparing the patient's discharge. Dictated By: TAISHA VIERA/MADELINE Conf#: [id number] [facility]#: [id number]
== END 2017-02-24 16:35 | disposition home or self-care (01) ==
LOC: E/R 23:15 → INTOOBSV 02-22 05:28 → MS2 02-22 05:28
PROVIDERS: ADMIT Internal Medicine; ATTEND Internal Medicine
DX: I12.0 Hypertensive chronic kidney disease with stage 5 chronic kidney disease or end stage renal disease (principal); N18.6 End stage renal disease; Z99.2 Dependence on renal dialysis; E87.5 Hyperkalemia; M89.9 Disorder of bone, unspecified; D64.9 Anemia, unspecified; M48.06 Spinal stenosis, lumbar region; M51.26 Other intervertebral disc displacement, lumbar region
CPT/HCPCS: 36415; 71010; 72100; 72148; 80048; 80053; 80061; 81001; 83036; 83605; 83735; 84100; 84439; 84443; 84484; 85025; 85610; 85730; 87040; 87086; 90935; 96374; 99285; G0378; J1644; J2270; 99217

== ENCOUNTER → 2019-04-11 | Outpatient (CLI) | payer MEDICARE, OTHER ==
[~2019-04-11] MED LIST changes: -HYDR-3498 PO; -HYDR-3720 PO; -SEVE800T10 PO; +SVL800C PO
== END | disposition home or self-care (01) ==
LOC: RAD 11:49
PROVIDERS: ATTEND Internal Medicine Nephrology
DX: R05 Cough (principal)
CPT/HCPCS: 71046

== ENCOUNTER 2019-07-16 11:56 | Emergency (ER) | payer MEDICARE, OTHER ==
[~2019-07-16] VITALS: Wt 78.0 kg
[~2019-07-16 11:56] MED LIST changes: +ALBU18HF INHALATION; +AZIT250T PO; +D-ME473S2 PO; +PRED20TA PO
[2019-07-16 11:59] VITALS: BP 140/78; PULSE 87; RESP 18
== END 2019-07-16 13:18 | disposition home or self-care (01) ==
LOC: E/R 11:56
DX: R06.2 Wheezing (principal); I10 Essential (primary) hypertension
CPT/HCPCS: 99283